=== PATIENT | female | born 1950 | race Caucasian/White ===

== ENCOUNTER 2017-03-02 06:47 | Day surgery (SDC) | payer OTHER ==
[~2017-03-02 06:47] MED LIST: CATAFLAN PO; ZANTAC150 M3 PO
[2017-03-02] MEDS ORDERED: MACROBID 100 M100 MG PO (13:54)
[2017-03-02] MEDS ORDERED: ULTRACET PO (13:58)
== END 2017-03-02 17:16 | disposition home or self-care (01) ==
LOC: CIR.AMB 06:47
DX: N81.11 Cystocele, midline (principal); N81.5 Vaginal enterocele